=== PATIENT | female | born 1980 | race African-American/Black ===

== ENCOUNTER 2024-01-09 00:58 | Emergency (ER) | payer OTHER ==
[2024-01-09 01:14] VITALS: BP 135/94; PULSE 80; RESP 16; TEMP 98.6; BMI 23.8
[2024-01-09 02:46] LABS: BASO % 1.3 % (0-2.0); EOS % 2.5 % (0-4.5); HEMATOCRIT 36.7 % (32.4-45.2); HEMOGLOBIN 11.6 GM/dL (10.7-15.3); LYMPH % 31.2 % (8-40); MCH 26.5 pg (25.7-33.7); MCHC 31.5 g/dl (32.0-36.0); MEAN CELL VOLUME 84.1 fl (80-96); MONO % 8.9 % (3.8-10.2); NEUT % 56.1 % (42.8-82.8); PLATELET COUNT 363 10^3/uL (134-434); RBC 4.37 M/mm3 (3.60-5.2); RDW 15.9 % (11.6-15.6); WHITE BLOOD COUNT 6.9 K/mm3 (4.0-10.0)
[2024-01-09 03:08] LABS: POTASSIUM 3.6 mmol/L (3.5-5.1)
[2024-01-09 03:10] LABS: BLOOD UREA NITROGEN 11.6 mg/dL (7-18); CALCIUM 8.8 mg/dL (8.5-10.1)
[2024-01-09 03:14] LABS: CREATININE 0.8 mg/dL (0.55-1.3)
[2024-01-09 03:15] LABS: BILIRUBIN,TOTAL 0.3 mg/dL (0.2-1)
[2024-01-09 03:18] LABS: N-TERMINAL BNP 40.2 pg/ml (5-125)
== END 2024-01-09 04:17 | disposition home or self-care (01) ==
LOC: FER 00:58
DX: R04.2 Hemoptysis (principal); R61 Generalized hyperhidrosis
CPT/HCPCS: 36415; 71045-TC-FY; 71275-TC; 80053; 81025; 83880; 84484; 85025; 93005; 99285-25